=== PATIENT | male | born 1985 ===

== ENCOUNTER 2024-07-11 12:04 | Inpatient (IN) | payer BC ==
[~2024-07-11] VITALS: Ht 172.7 cm; Wt 72.9 kg
[2024-07-11 15:13] VITALS: BP 136/94
[2024-07-11] MEDS ORDERED: Polyethylene Glycol 3350 17 gm PO PRN (15:15)
[2024-07-11] MEDS ORDERED: Ibuprofen 600 MG Tab PO PRN (15:15)
[2024-07-11] MEDS ORDERED: OLANZapine ODT 10 MG Tab MM PRN (15:15)
[2024-07-11] MEDS ORDERED: LORazepam 2 MG Tab PO PRN (15:15)
[2024-07-11] MEDS ORDERED: DiphenhydrAMINE HCl 50 MG/ML 1ML Vial IV PRN (15:20)
[2024-07-11] MEDS ORDERED: DiphenhydrAMINE HCl 50 MG Cap PO PRN (15:20)
[2024-07-11] MEDS ORDERED: FLU VACC TS2024-25(6MOS UP)/PF 45 MCG/0.5 ML SYRINGE IM ONE (15:20)
[2024-07-11] MEDS ORDERED: Melatonin 3 MG Tab PO PRN (15:20)
[2024-07-11] MEDS ORDERED: TraZODone HCl 50 MG Tab PO PRN (15:20)
[2024-07-11] MEDS ORDERED: Acetaminophen 325 MG TABLET PO PRN (15:20)
[2024-07-11] MEDS ORDERED: Calcium Carbonate 500 MG Tab Chew PO PRN (15:20)
[2024-07-11] MEDS ORDERED: Aluminum Hydroxide 320MG/5ML 473 ML PO PRN (15:20)
[2024-07-11] MEDS ORDERED: HydrOXYzine Pamoate 50 MG Cap PO PRN (15:25)
[2024-07-11] MEDS ORDERED: Haloperidol 5 MG Tab PO PRN (15:25)
[2024-07-11] MEDS ORDERED: Haloperidol Lactate Inj. 5 MG/ML Injection IM PRN (15:25)
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
[2024-07-11] MEDS ORDERED: Ondansetron 4 MG SoluTab MM PRN (15:55)
[2024-07-11] MEDS ORDERED: LORazepam 2 MG/ML 1ML Injection IM PRN (15:55)
[2024-07-11 19:59] VITALS: BP 148/104
--- NOTE | 2024-07-12 04:02 | NUR ---
Patient is alert and oriented times four. And very pleasant and cooperative with staff and his peers. Oz slept well after agreeing to take melatonin and trazodone around 2200. Denied SI,HI and AVH during evening assessment. Sleep hours thus far have been 6 hours, however patient is still sleeping. Will continue close monitoring every 15 minutes for comfort and safety.
[2024-07-12 08:20] VITALS: BP 125/78
[2024-07-12] MEDS ORDERED: Multivitamins 1 Tab PO SCH (09:00)
[2024-07-12] MEDS ORDERED: BuPROPion HCl 75 MG Tab PO SCH (13:00)
--- NOTE | 2024-07-12 16:53 | NUR ---
SHIFT SUMMARY PT HAS BEEN UP FOR THE SHIFT, PARTICIPATING IN THE MILIEU AND ACTIVITIES, HAVEN'T SEEN HIM ENGAGE VERBALLY WITH HIS PEERS BUT HE DOES JOIN THEM IN THE TV ROOM. HE PREFERS TO SIT IN THE SENSORY ROOM, READING A BOOK. HIS MOM CAME TO VISIT TODAY, SHE STAYED FOR APPROX AN HOUR THE MILIEU ALLOWED FOR IT, IT WAS A VERY GOOD VISIT PER THE PT. PT HAS DENIED SI/HI/AVH, HE HAS HAD Q15 MIN ROUNDING FOR SAFETY
[2024-07-12 20:17] VITALS: BP 146/92
--- NOTE | 2024-07-13 03:54 | NUR ---
Patient is alert and oriented times four. He spent the evening out in the milieu and was cooperative with staff and pleasant, yet quiet around his peers. At the time of evening assessment, he denied SI,HI and AVTH. He was unable to sleep more than a few hours in his room even with medication to sleep and headphones on. Patient settled into Sensory room as there was no other male bed available to him and slept for a few hours Will continue close monitoring every 15 minutes for comfort and safety
[2024-07-13 08:15] VITALS: BP 131/72
--- NOTE | 2024-07-13 16:41 | NUR ---
SHIFT SUMMARY PT HAS HAD A GREAT DAY, PARTICIPATING IN ALL GROUPS, MEALS AND ACTIVITIES. HIS MOTHER CAME TO VISIT, THAT WENT VERY WELL, HE HAS A LOT OF SUPPORT FROM HIS MOTHER, HIS DAD CALLED TO TALK TO HIM. COMMUNICATIONS OPERATOR HAS PAPERWORK THAT NEEDS TO BE FILLED OUT FOR PT'S SHORT TERM DISABILITY. PT HAS DENIED SI/HI/AVH TODAY. TODAY IT'S NOTED HE IS ENGAGING WITH HIS PEERS AND HAVING CONVERSATIONS WHERE HE WASN'T DOING SO YESTERDAY. CONTINUED Q15min SAFETY CHECKS THROUGHOUT THE SHIFT
[2024-07-13 21:14] VITALS: BP 142/81
--- NOTE | 2024-07-14 04:37 | NUR ---
Patient had a good night. He denies SI.HI and AVH, and was out in the milieu until after snack time. No changes overnight. Will continue close observation every 15 minutes for safety and security.
[2024-07-14 07:39] VITALS: BP 140/87
[2024-07-14] MEDS ORDERED: buPROPion HCL 150 MG TAB.SR.12H PO SCH (09:00)
--- NOTE | 2024-07-14 17:50 | NUR ---
SHIFT SUMMARY PT AxOx4. VERY CALM, PLEASANT AND COOPERATIVE WITH CARE. PT DENIES SI/HI AND AVTH AT AM ASSESSMENT. PT HAS BEEN FOLLOWING HIS TREATMENT PLAN INCLUDING TAKING MEDICATIONS PRESCRIBED, ATTENDING ALL MILIEU THERAPY GROUPS AND MINGLING APPROPRIATELY WITH STAFF/PEERS ON THE UNIT. PT HAD VISIT WITH HIS MOTHER TODAY. [place] PAPERWORK FILLED OUT BY INTERNET SPECIALIST AND PSYCHIATRIST. EXPECTED DC TOMORROW TO GO HOME WITH HIS MOTHER. PT DENIES ANY NEEDS AT THIS TIME.
[2024-07-14 21:13] VITALS: BP 137/82
--- NOTE | 2024-07-15 02:32 | NUR ---
patient sleeping comfortably in bed. Respirations even and unlabored. will continue close monitoring
--- NOTE | 2024-07-15 03:45 | NUR ---
Patient is alert and oriented times four. Participating in the milieu and pleasant with staff and peers. Mood is elevated as he is excited about his discharge today. Slept very well after Trazodone and melatonin at bedtime. Will continue close monitoring every 15 minutes for comfort and safety.
[2024-07-15 08:05] VITALS: BP 121/87
[2024-07-15] MEDS ORDERED: BUPR150ER PO (12:20)
--- NOTE | 2024-07-15 12:47 | NUR ---
PT DISCHARGED HOME. PT, MOTHER, IMPORT EXPORT AGENT AND PROVIDER HAD MEETING PRIOR TO DISCHARGE. PT PROVIDED WITH DISCHARGE INSTRUCTIONS AND DENIED QUESTIONS. PT DENIED SI, HI AND AVH. PT BELONGINGS RETURNED BY [facility]. PT AMBULATED OUT OF THE DEPT WITH DIFFICULTY WITH MOTHER, BELONGINGS IN HAND.
== END 2024-07-15 12:47 | disposition home or self-care (01) | DRG 885 ==
LOC: BHU 12:04
PROVIDERS: ADMIT Psychiatry & Neurology Psychiatry
DX: F32.2 Major depressive disorder, single episode, severe without psychotic features (principal); R45.851 Suicidal ideations; F43.21 Adjustment disorder with depressed mood
CPT/HCPCS: A9270